=== PATIENT | male | born 1980 | race Caucasian/White ===

== ENCOUNTER 2017-08-08 05:51 | Inpatient (IN) | payer OTHER ==
[2017-07-31 14:57] LABS: BASOPHILS % (AUTO) 0.5 % (0-1); EOSINOPHILS # (AUTO) 0.1 X10'3 (0-0.9); EOSINOPHILS % (AUTO) 1.4 % (0-6); LYMPHOCYTES # (AUTO) 2.1 X10'3 (1.1-4.8); LYMPHOCYTES % (AUTO) 34.6 % (21-51); MEAN CORPUSCULAR HEMOGLOBIN 29.9 PG (27.0-31.0); MEAN CORPUSCULAR HGB CONC 34.1 % (33.0-36.5); MEAN CORPUSCULAR VOLUME 87.7 FL (78-98); MEAN PLATELET VOLUME 7.8 FL (7.4-10.4); MONOCYTES # (AUTO) 0.6 X10'3 (0-0.9); MONOCYTES % (AUTO) 9.6 % (2-12); NEUTROPHILS # (AUTO) 3.3 X10'3 (1.8-7.7); NEUTROPHILS % (AUTO) 53.9 % (42-75); PRE OP HEMATOCRIT 48.8 % (42.0-52.0); PRE OP HEMOGLOBIN 16.7 g/dL (14.0-17.9); PRE OP PLATELET COUNT 262 X10'3 (140-440); RED BLOOD COUNT 5.57 X10'6 (4.70-6.10); RED CELL DISTRIBUTION WIDTH 12.8 % (11.5-14.5)
[2017-07-31 15:02] LABS: ALKALINE PHOSPHATASE 73 IU/L (46-116); BLOOD UREA NITROGEN 13 MG/DL (7-18); BUN/CREATININE RATIO 9.6 (5.4-32.0); CALCIUM 9.4 MG/DL (8.5-10.1); CHLORIDE 106 MMOL/L (99-107); CREATININE 1.36 MG/DL (0.60-1.10); PRE OP ALT 74 U/L (30-65); PRE OP ANION GAP 6 (8-16); PRE OP AST 31 U/L (10-37); PRE OP BILIRUB, TOTAL 0.7 MG/DL (0.0-1.0); PRE OP GLUCOSE 85 MG/DL (70-104); PRE OP POTASSIUM 4.3 MMOL/L (3.4-5.1); PRE OP SODIUM 144 MMOL/L (135-145); TOTAL CARBON DIOXIDE 32.4 MMOL/L (24-32); TOTAL PROTEIN 7.9 G/DL (6.4-8.2); eGFR 60 ML/MIN
[~2017-08-08] VITALS: Ht 180.3 cm; Wt 116.8 kg
[2017-08-08] VITALS (18 sets, daily range): BP systolic 112–131; BP diastolic 66–88
[~2017-08-08 05:51] MED LIST: BIOT10TA PO; CYA500T PO; HYDR-3972 PO; PYRI50TA10 PO; ceFAZolin 2gm in dextrose, iso 50 ML IV ONE; famotidine 20mg tablet PO ONE; vancomycin inj 1,500 MG in normal saline 300ml IV soln IV ONE
[2017-08-08] MEDS ORDERED: LIDOcaine 1% (10mg/ml) 2ml vial ONE (06:16)
[2017-08-08] MEDS ORDERED: ceFAZolin 2gm in dextrose, iso 100 ML IV ONE (06:35)
[2017-08-08] MEDS: ringers solution, lacted 1,000 ML IV SCH ×2 (06:53→16:50)
[2017-08-08] MEDS ORDERED: TRANEXAMIC ACID IV ONE ×2 (07:45→11:40)
[2017-08-08] MEDS ORDERED: NORMAL SALINE IV ONE ×2 (07:45→11:40)
[2017-08-08] MEDS ORDERED: tranexamic acid inj. 0 MG in normal saline 100ml IV soln 100 ML IV ONE (07:50)
[2017-08-08] MEDS ORDERED: ketorolac trometh. 30mg/ml inj. ONE (07:58)
[2017-08-08] MEDS ORDERED: ROPIVAcaine 0.5% (5mg/ml) 30ml vial ONE ×2 (07:59→09:29)
[2017-08-08] MEDS ORDERED: vancomycin 1,000mg inj ONE (07:59)
[2017-08-08] MEDS ORDERED: fentaNYL/PF 50MCG/1 ML 2ML syringe ONE (09:26)
[2017-08-08] MEDS ORDERED: midazolam 2 mg/2 ml injection ONE ×2 (09:27)
[2017-08-08] MEDS ORDERED: propofol inj 20 ML IV ONE (09:30)
[2017-08-08] MEDS ORDERED: dexamethasone sod phosphate 4mg/ml inj. ONE (09:42)
[2017-08-08] MEDS ORDERED: sevoflurane 250ml liquid IH ONE (09:42)
[2017-08-08] MEDS ORDERED: ringers solution, lacted 1,000 ML IV SCH (11:01)
[2017-08-08] MEDS ORDERED: proCHLORperazine 10 MG/2 ml inj IV PRN (11:05)
[2017-08-08] MEDS ORDERED: ondansetron/PF 4mg/2ml inj IV PRN ×2 (11:05→12:50)
[2017-08-08] MEDS ORDERED: meperidine/PF 25mg/ml syringe IV PRN ×3 (11:05)
[2017-08-08] MEDS ORDERED: ondansetron/PF 4mg/2ml inj ONE (12:17)
[2017-08-08] MEDS ORDERED: diphenhydrAMINE 25mg capsule PO PRN ×2 (12:50)
[2017-08-08] MEDS ORDERED: acetaminophen 325mg tablet PO PRN (12:50)
[2017-08-08] MEDS ORDERED: HYDROmorphone inj. 0.5 MG/0.5 ML DISP.SYRIN IV PRN ×2 (12:50)
[2017-08-08] MEDS ORDERED: bisacodyl 10mg suppository rectal RC PRN (12:50)
[2017-08-08] MEDS ORDERED: magnesium hydroxide 30ml (MOM) UD suspension PO PRN (12:50)
[2017-08-08] MEDS ORDERED: oxyCODONE IR 5mg (immed. release) tablet PO PRN (12:50)
[2017-08-08] MEDS: ketorolac tromethamine 15mg/ml inj. IV SCH ×2 (15:59→19:53)
[2017-08-08] MEDS: gabapentin 300mg capsule PO SCH ×2 (16:00→22:24)
[2017-08-08] MEDS: acetaminophen 325mg tablet PO SCH ×2 (16:00→19:53)
[2017-08-08] MEDS ORDERED: tranexamic acid inj. 1,170 MG in normal saline 100ml IV soln 100 ML IV ONE (16:00)
[2017-08-08] MEDS: ceFAZolin/D5W- 1GM premix 50 ML IV SCH ×2 (16:50→23:56)
[2017-08-08] MEDS ORDERED: celeCOXIB 100mg capsule PO SCH (20:00)
[2017-08-08] MEDS ORDERED: vancomycin/NS 1 GM ADD-VANTAGE 250 ML IV SCH (20:00)
[2017-08-08] MEDS ORDERED: sennosides 8.6mg tablet PO SCH (21:00)
[2017-08-09] MEDS: ketorolac tromethamine 15mg/ml inj. IV SCH ×3 (01:52→15:17)
[2017-08-09] MEDS: acetaminophen 325mg tablet PO SCH ×3 (01:53→15:17)
[2017-08-09 02:18] VITALS: BP 110/63
[2017-08-09] MEDS: oxyCODONE IR 5mg (immed. release) tablet PO PRN ×2 (05:26→09:50)
[2017-08-09 06:00] VITALS: BP 133/85
[2017-08-09 06:16] LABS: BASOPHILS % (AUTO) 0.2 % (0-1); EOSINOPHILS # (AUTO) 0.1 X10'3 (0-0.9); EOSINOPHILS % (AUTO) 0.5 % (0-6); HEMATOCRIT 38.7 % (42.0-52.0); HEMOGLOBIN 13.4 g/dl (14.0-17.9); LYMPHOCYTES # (AUTO) 1.9 X10'3 (1.1-4.8); LYMPHOCYTES % (AUTO) 12.7 % (21-51); MEAN CORPUSCULAR HEMOGLOBIN 30.5 PG (27.0-31.0); MEAN CORPUSCULAR HGB CONC 34.6 % (33.0-36.5); MEAN CORPUSCULAR VOLUME 88.2 FL (78-98); MEAN PLATELET VOLUME 7.4 FL (7.4-10.4); MONOCYTES # (AUTO) 1.3 X10'3 (0-0.9); MONOCYTES % (AUTO) 8.7 % (2-12); NEUTROPHILS # (AUTO) 11.7 X10'3 (1.8-7.7); NEUTROPHILS % (AUTO) 77.9 % (42-75); PLATELET COUNT 224 X10'3 (140-440); RED BLOOD COUNT 4.39 X10'6 (4.70-6.10); RED CELL DISTRIBUTION WIDTH 13.1 % (11.5-14.5)
[2017-08-09 06:52] LABS: ANION GAP 7 (8-16); CHLORIDE 107 MMOL/L (99-107); POTASSIUM 3.5 MMOL/L (3.5-5.1); SODIUM 141 MMOL/L (135-145); TOTAL CARBON DIOXIDE 26.6 MMOL/L (24-32)
[2017-08-09] MEDS ORDERED: aspirin 325mg tablet PO SCH (08:30)
[2017-08-09] MEDS: gabapentin 300mg capsule PO SCH ×2 (09:50→13:30)
[2017-08-09 10:00] VITALS: BP 120/78
== END 2017-08-09 14:45 | disposition home or self-care (01) | DRG 483 ==
LOC: PAS IN 05:51 → EDSTATUS 09:45 → ORTHO 4S 14:20
PROVIDERS: ADMIT Orthopaedic Surgery; ATTEND Orthopaedic Surgery
PROC: 0RRJ0JZ Replacement of Right Shoulder Joint with Synthetic Substitute, Open Approach (ICD-10-PCS; principal; 2017-08-08 09:47)
DX: M19.111 Post-traumatic osteoarthritis, right shoulder (principal); D62 Acute posthemorrhagic anemia; D50.0 Iron deficiency anemia secondary to blood loss (chronic); M19.019 Primary osteoarthritis, unspecified shoulder; G89.29 Other chronic pain; M65.9 Synovitis and tenosynovitis, unspecified; M75.21 Bicipital tendinitis, right shoulder; S43.431A Superior glenoid labrum lesion of right shoulder, initial encounter
CPT/HCPCS: 36415; 80051; 80053; 85025; 87070; A4565; A7000; C1713; C1776; J0690; J1100; J1885; J2250; J2405; J2704; J2795; J3010; J3370; J3490; J7120